=== PATIENT | male | born 1995 | race African-American/Black ===

== ENCOUNTER 2023-09-07 08:28 | Emergency (ER) | payer SELFPAY ==
[~2023-09-07] VITALS: Ht 165.1 cm; Wt 54.5 kg
[2023-09-07 08:38] VITALS: O2SAT 100
[2023-09-07 08:42] VITALS: BP 121/83; PULSE 59; RESP 18
[2023-09-07 09:23] VITALS: TEMP 98.5
[2023-09-07] MEDS: ACETAMINOPHEN 325MG TABLET PO ONE (09:23)
[2023-09-07] MEDS ORDERED: IBUP-2029 MT (09:54)
== END 2023-09-07 10:46 | disposition home or self-care (01) ==
LOC: ER 08:28
DX: S06.0X0A Concussion without loss of consciousness, initial encounter (principal); X58.XXXA Exposure to other specified factors, initial encounter; Y93.89 Activity, other specified; Y92.89 Other specified places as the place of occurrence of the external cause; Y99.8 Other external cause status
CPT/HCPCS: 99284